=== PATIENT | female | born 1970 | race Caucasian/White ===

== ENCOUNTER 2017-03-09 00:09 | Observation (INO) | payer OTHER ==
[2017-03-09] VITALS (10 sets, daily range): BP systolic 109–126; BP diastolic 68–83
[~2017-03-09] VITALS: Ht 162.6 cm; Wt 82.1 kg
[~2017-03-09 00:09] MED LIST: IBUP800T37 PO
--- NOTE | 2017-03-09 04:15 | BRAGG H&P ---
DATE OF ADMISSION: March 09, 2017 CHIEF COMPLAINT Abnormal bleeding. HISTORY OF PRESENT ILLNESS The patient is a 46-year-old 4, para 3 with several-month history of menorrhagia. She reported heavy bleeding vaginally with moderate amount, however, being severe at times. She has also experienced a great deal of pain with her periods. She had endometrial biopsy that showed no hyperplasia, malignancy, polyps or chronic endometritis. After discussion of risks and alteratives, patient desired to proceed with laparoscopic-assisted vaginal hysterectomy, bilateral salpingectomy, modified Mckinney's culdoplasty, diagnostic cystoscopy with a possible anterior colporrhaphy. CURRENT MEDICATIONS Ibuprofen. ALLERGIES No known allergies. REVIEW OF SYSTEMS GENITOURINARY: As per HPI. General, skin, eyes, ears, nose, mouth, neck, respiratory, cardiovascular, gastrointestinal, neurologic, psychiatric all reviewed and noncontributory. PAST MEDICAL HISTORY Two vaginal deliveries and one C section. PAST SURGICAL HISTORY In 1999, she had C section with bilateral tubal ligation, 1979 tonsillectomy, 2004 a cholecystectomy. FAMILY HISTORY Mother with hypertension and diabetes. SOCIAL HISTORY She uses alcohol 2-3 times a week. 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 PHYSICAL EXAMINATION VITAL SIGNS: Blood pressure 124/78, temp 99, weight 186. CONSTITUTIONAL: Well-nourished, well-developed female in no distress. SKIN: Without rash or lesions. NECK: Supple without masses. HEART: Regular rate and rhythm. LUNGS: Clear to auscultation bilaterally. ABDOMEN: Soft, nontender, nondistended. Bowel sounds positive. EXTREMITIES: Nontender, no edema. PSYCHIATRIC: Alert and oriented x 3. Normal mood and affect. PELVIC: Normal external female genitalia. Well estrogenized vaginal lining. No abnormal discharge. No lesions. Cervix normal in appearance. No bladder tenderness. No adnexal masses or tenderness. Uterus was 7 x 6 cm and no adnexal masses or tenderness. She had grade 2 cystocele. ASSESSMENT AND PLAN Menorrhagia with uterine polyp found on saline infusion sonogram. Patient desired to proceed with laparoscopic-assisted vaginal hysterectomy, bilateral salpingectomy, modified Mckinney's culdoplasty, diagnostic cystoscopy and possible anterior colporrhaphy. [facility]
[2017-03-09] MEDS ORDERED: MIDAZOLAM 2 MG/2 ML VIAL ONE (08:50)
[2017-03-09] MEDS ORDERED: LIDOCAINE MPF 1% 5 ML VIAL ONE (08:51)
[2017-03-09] MEDS ORDERED: MORPHINE PF 5 MG/10 ML AMP ONE (08:51)
[2017-03-09] MEDS ORDERED: DEXAMETHASONE SOD PHOS 10MG/ML ONE (08:51)
[2017-03-09] MEDS ORDERED: ONDANSETRON 4 MG/2 ML VIAL ONE ×2 (08:51→11:13)
[2017-03-09] MEDS ORDERED: PROPOFOL EMUL(*) 10MG/ML 20 ML 20 ML ONE (08:51)
[2017-03-09] MEDS ORDERED: ROCURONIUM BROM 10 MG/ML 10 ML ONE (08:51)
[2017-03-09] MEDS ORDERED: fentaNYL CITR 100 MCG/2 ML AMP ONE ×2 (08:51→13:08)
[2017-03-09 09:40] LABS: PLATELET COUNT, AUTOMATED 378 K/uL (150-450)
[2017-03-09] MEDS ORDERED: ROPIVACAINE 0.2% 20 ML VIAL ONE (10:56)
[2017-03-09] MEDS ORDERED: VASOPRESSIN 20 UNIT/ML VIAL ONE (10:56)
[2017-03-09] MEDS ORDERED: NS(*) 0.9% 100 ML BAG 0 ML ONE (10:58)
--- NOTE | 2017-03-09 11:33 | Post Operative Note ---
Operative Note - TELEVISION ANALYZER Operative Day Date: Mar 09, 2017 Time: 11:40 Physicians Surgeon: JUAN RAMON Outsole Beveler: PELON Anesthesia: WATTS Diagnosis Pre-Op Diagnosis: MENORRHAGIA DYSMENORRHEA Post-Op Diagnosis: SAME RIGHT OVARIAN CYST Procedure Findings: UTERUS 7X6 CM NORMAL LEFT OVARY RIGHT OVARY WITH HEMORRHAGIC CYST BILATERAL URETERAL JETS AT END OF PROCEDURE [id number] Procedure(s): LAVH BI SALPINGECTOMY [facility] DX CYSTO RIGHT OVARIAN CYSTECTOMY Complications: 0 Fluids Fluids: 1300 CC NR IV Estimated Blood Loss: 300 CC Dictated Date OP Note Dictated: Mar 09, 2017 Time OP Note Dictated: 13:54 Copies to: ERICA DELATORRE MD, JOHN MD Mar 09, 2017 11:33
[2017-03-09] MEDS ORDERED: IBUP800T37 PO (11:34)
[2017-03-09] MEDS ORDERED: OXYC-373 PO (11:34)
[2017-03-09] MEDS ORDERED: LIDOCAINE/SOD BICARB 8.4% SYR ID ONE (12:30)
[2017-03-09] MEDS ORDERED: NORMOSOL R SOLN(*) 1000 ML BAG 1,000 ML IV PRN (12:30)
[2017-03-09] MEDS ORDERED: PHENAZOPYRIDINE 200 MG TAB PO ONE (12:30)
[2017-03-09] MEDS ORDERED: cefOXitin/DEX(*) 2GM/50ML PREM 50 ML IVPB ONE (12:30)
[2017-03-09] MEDS ORDERED: HYDROmorphone HCL 2 MG TAB PO ONE (12:30)
[2017-03-09] MEDS ORDERED: FAMOTIDINE 20 MG TAB PO ONE (12:30)
[2017-03-09] MEDS ORDERED: MIDAZOLAM 2 MG/2 ML VIAL IVP PRN (12:30)
[2017-03-09] MEDS ORDERED: CELECOXIB 200 MG CAP PO ONE (12:30)
[2017-03-09] MEDS ORDERED: SUGAMMADEX SOD 200 MG/2 ML SDV ONE (13:36)
[2017-03-09] MEDS ORDERED: DLR(*) 1000 ML BAG 1,000 ML IV PRN (13:43)
[2017-03-09] MEDS ORDERED: FAMOTIDINE(*) 20MG/50ML PREMIX 50 ML IVPB PRN (13:43)
[2017-03-09] MEDS ORDERED: PROMETHAZINE 25 MG/ML 1 ML AMP IVP PRN (13:45)
[2017-03-09] MEDS ORDERED: METOCLOPRAMIDE 10 MG/2 ML SDV IV PRN (13:45)
[2017-03-09] MEDS ORDERED: ONDANSETRON 4 MG/2 ML VIAL IV PRN (13:45)
[2017-03-09] MEDS: ACETAMINOPHEN(*)1000 MG/100 ML 100 ML IVPB SCH ×2 (14:12→20:11)
[2017-03-09] MEDS: SIMETHICONE 80 MG CHEW CHEW SCH ×2 (16:44→21:10)
[2017-03-09] MEDS: HYDROmorphone HCL 2 MG TAB PO PRN (16:51)
[2017-03-09] MEDS: CELECOXIB 200 MG CAP PO SCH (20:11)
[2017-03-09] MEDS: DOCUSATE CALCIUM 240 MG CAP PO SCH (21:10)
[2017-03-09] MEDS: FAMOTIDINE 20 MG TAB PO SCH (21:10)
--- NOTE | 2017-03-09 21:24 | OB/GYN Progress Note ---
OB Subjective Progress Notes Subjective Pain controlled, Tolerating diet and activity. GI: POS Flatus, NEG Nausea, NEG Vomiting Pain: Mild OB Objective Physical Exam Vital Signs Date Time Temp Pulse Resp B/P (MAP) Pulse Ox O2 Delivery O2 Flow Rate FiO2 03/09/17 18:10 100 Nasal Cannula 0.5 03/09/17 18:10 98.4 64 18 121/75 (90) Intake and Output 03/10/17 07:00 Intake Total 1530 ml Output Total 700 ml Balance 830 ml Intake Oral 230 ml IV Total 1300 ml Output Urine Total 400 ml Estimated Blood Loss 300 ml Cardiovascular: Regular Rate and Rhythm Respiratory: Clear to Auscultation Abdomen: Soft, Non-Tender, Non-Distended, Bowel Sounds Present Extremities: No Edema Result Diagram: 03/09/1792503/09/17925 Assessment and Plan Post Op Day: 0 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 Voiding trial tomorrow. ERICA DELATORRE MD Mar 09, 2017 21:24
[2017-03-10] MEDS: HYDROmorphone HCL 2 MG TAB PO PRN (00:06)
[2017-03-10] MEDS: ACETAMINOPHEN(*)1000 MG/100 ML 100 ML IVPB SCH ×2 (01:48→08:00)
[2017-03-10 01:50] VITALS: BP 107/61
[2017-03-10 06:49] LABS: PLATELET COUNT, AUTOMATED 290 K/uL (150-450)
--- NOTE | 2017-03-10 07:32 | OB/GYN Progress Note ---
OB Subjective Progress Notes Subjective Pain controlled, Tolerating diet and activity. 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 Voiding trial today. ERICA DELATORRE MD Mar 10, 2017 07:32
[2017-03-10 07:45] VITALS: BP 114/70
[2017-03-10 08:02] VITALS: Ht 162.6 cm; Wt 82.1 kg
[2017-03-10] MEDS: DOCUSATE CALCIUM 240 MG CAP PO SCH (08:27)
[2017-03-10] MEDS: FAMOTIDINE 20 MG TAB PO SCH (08:27)
[2017-03-10] MEDS: CELECOXIB 200 MG CAP PO SCH (08:27)
[2017-03-10] MEDS: SIMETHICONE 80 MG CHEW CHEW SCH (08:28)
[2017-03-10 11:50] VITALS: BP 118/68
[2017-03-11] MEDS ORDERED: INFLUENZA VIRUS VAC 0.5 ML SYR IM ONLY ONE (09:00)
--- NOTE | 2017-03-12 04:53 | BRAGG LAVH ---
EVENT DATE: March 09, 2017 SURGEON: Quentin Prado MD ANESTHESIOLOGIST: Nitish Zacarias MD ANESTHESIA: chief recordist: Warren Cagle DO PREOPERATIVE DIAGNOSES 1. Menorrhagia. 2. Dysmenorrhea. POSTOPERATIVE DIAGNOSES 1. Menorrhagia. 2. Dysmenorrhea. 3. Right ovarian cyst. PROCEDURE PERFORMED Laparoscopic-assisted vaginal hysterectomy, bilateral salpingectomy, modified Mckinney's culdoplasty, diagnostic cystoscopy with a right ovarian cystectomy at end of procedure. COMPLICATIONS None. FLUIDS 1300 mL of Normosol IV. ESTIMATED BLOOD LOSS 300 mL. INDICATIONS The patient is 46-year-old multiparous female with menorrhagia and dysmenorrhea that tried medical management for her abnormal bleeding, which was unsuccessful. After the discussion of risks and alternatives, the patient desired to proceed with hysterectomy. FINDING Uterus 7 x 6 cm. She had a normal left ovary. She had a right ovary with a hemorrhagic-appearing cyst. Bilateral ureteral jets were seen at the end of the procedure. DESCRIPTION OF PROCEDURE After informed consent was obtained, the patient was taken to the operating room with IV running, placed in a supine position, where general anesthesia was obtained without difficulty. She was then placed in the [facility], examined under anesthesia with the above findings. She was then prepped and draped in the usual fashion, and a Reddy catheter was placed. Side-out speculum was placed into the vagina. Cervix was grasped with a single-toothed tenaculum and the cervix sounded to 9 cm. The #8 VERONICA uterine manipulator was advanced into the uterine cavity. Once the VERONICA had been placed, all the remainder of the instruments were removed from the vagina. The legs were lowered. Attention was then turned to the abdomen, where 0.2 Naropin was infiltrated into the umbilicus. Skin incision was made with the scalpel. Veress needle was advanced into the abdominal cavity. Normal CO2 filling pressures were noted. After adequate insufflation, a 5 mm bladeless trocar was advanced under laparoscopic guidance. Intraabdominal placement was confirmed by laparoscopy. No injuries were noted at the time of entry. Right and left lateral ports were placed after 0.2 Naropin, skin incision, scalpel and advancing the 5 mm bladeless trocars under direct visualization. Patient was placed in Trendelenburg positioning. Bowel was allowed to escape from the pelvis. She was noted to have hemorrhagic-appearing cyst on the right ovary, normal-appearing left ovary. No other abnormalities were noted. The left tube was identified, grasped and transected away from the left ovary with the gyrus cutting forceps down to the cornual region of the uterus. The left utero- ovarian ligament was then grasped with the gyrus cutting forceps, coapted and transected, round ligament coapted and transected with the gyrus cutting forceps. Attention was then turned to the patient's right, where the right ovary appeared to have a hemorrhagic-appearing cyst or a hemorrhagic corpus luteum on the right ovary. The right tube was from the right ovary with the gyrus cutting forceps, and the mesosalpinx was transected down to the corneal region of the uterus. Utero-ovarian ligament was coapted and transected with the gyrus cutting forceps, and then the round ligament coapted and transected. The anterior and posterior leaf of the broad ligament was transected down to the lower uterine segment, creating a bladder flap anteriorly. The posterior leaf of the broad ligament was then transected down towards the right utero-sacral ligament. Uterine arteries were identified in the entrance into the lower uterine segment. They were coapted with the gyrus cutting forceps. Attention was then turned towards the patient's left. The remainder of the bladder flap was created with the anterior leaf of the broad ligament being transected, and then the posterior leaf of the broad ligament transected down towards the left utero-sacral ligament. The uterine arteries were coapted at their insertion to the lower uterine segment. Hemostasis was noted. Gas was allowed to escape from the abdomen along with the instruments were removed. Attention was then turned to the vaginal portion of the case, where the legs were elevated. Short weighted speculum was placed into the vagina. Cervix was grasped with Leda clamps, cervix circumscribed with the Bovie, posterior cul-de-sac entered sharply with Hanna scissors. The long weighted speculum was placed into the posterior cul-de-sac. The uterosacral ligaments were identified bilaterally and gasped with Josefina clamps, transected and suture ligated with #0-Vicryl. The vaginal lining was dissected off the endocervical fascia with Metzenbaum scissors. The cardinal ligaments were identified bilaterally, clamped with Josefina clamps, transected and suture ligated with #0-Vicryl. The vaginal lining was then further dissected off the endocervical fascia with Metzenbaum scissors. Uterine arteries were then clamped with Josefina clamps, transected and suture ligated with #0-Vicryl. The anterior cul-de-sac was then entered sharply with Metzenbaum scissors. Right angle retractor was placed into the anterior cul-de-sac and anterior compartment was confirmed. The remainder of the uterine pedicles were then clamped with Josefina clamps bilaterally, transected and suture ligated with #0- Vicryl. Uterus was removed from the pelvis. Irrigation was performed. No bleeding was noted from either pedicle. The peritoneum was grasped at the 12 o' clock position and closed in a counter clockwise manner in a purse-string fashion down to the right uterosacral ligament. The right uterosacral ligament was plicated to the ipsilateral portion of the vaginal lining on the right and then the left. Short weighted speculum was placed. The posterior cul-de-sac was then purse-stringed with the Mckinney's sutures, and then exiting out of the posterior wall of the vagina bilaterally. This was done bilaterally. The peritoneum was then further closed in a pursestring fashion, closing the peritoneum. Irrigation was performed. There was some oozing from the posterior cuff, and no bleeding from the pedicles. The vaginal lining was then closed with a running locked fashion of 2-0 Vicryl Plus down to the level of the uterosacral ligaments. The uterosacral ligaments were plicated in the midline, and the posterior cuff was then closed in a running locked fashion. Irrigation was performed. No further bleeding was noted. The Mckinney's sutures were then tied, elevating the posterior cuff nicely into the vaginal vault. Cystoscopy was performed. Normal bladder was noted, no injuries. The bilateral ureteral jets could be seen with Pyridium-stained urine. Bladder was drained. Reddy catheter was replaced. Legs were lowered. Attention was then turned to the abdomen. The abdomen was re-insufflated. Irrigation was performed. There was some oozing from the right uterine pedicle. This was made hemostatic with the gyrus cutting forceps. The inspection of the right ovary revealed what appeared to be a cystic-type simple cyst on the right ovary , which was drained with the gyrus cutting forceps. The adjacent cyst was then incised, and what appeared to be clot was removed from the suspected hemorrhagic corpus luteum and sent to pathology. The gyrus was used to create hemostasis in the ovarian bed, and irrigation was performed. No further bleeding was noted from anywhere in the pelvis. The gas was allowed to escape. All instruments were removed from the abdomen. The skin was closed with 4-0 Maxon and Dermabond. The patient was taken out of the [facility], awakened from anesthesia, and taken to the recovery room in stable condition. CELSA
== END 2017-03-10 12:11 | disposition home or self-care (01) ==
LOC: OR 00:09 → PED 15:10
PROVIDERS: ADMIT Obstetrics & Gynecology; ATTEND Obstetrics & Gynecology
DX: N92.0 Excessive and frequent menstruation with regular cycle (principal); N94.6 Dysmenorrhea, unspecified
CPT/HCPCS: 36415; 58552; 84703; 85025; 88305; 88307; G0378; J0131; J0694; J1100; J2001; J2250; J2405; J2704; J2795; J3010; 82310; 82374; 82435; 82565; 82947; 84132; 84295; 84520; J2270; J3490; J7050

== ENCOUNTER → 2017-04-07 | Outpatient (CLI) | payer OTHER ==
[2017-03-10 08:02] VITALS: BMI 31.1
[~2017-04-07] MED LIST changes: +IOPAMIDOL 76% 75 ML INFUS BTL 75 ML ONE; +NS 0.9% 20 ML SDV 60 ML ONE; +OXYC-373 PO
--- NOTE | 2017-04-07 13:54 | RADIOLOGY IMAGING REPORT ---
FACILITY: [facility] PATIENT NAME: Katharine Godfrey : 1970 MR: [id number] V: [id number] EXAM DATE: ORDERING PHYSICIAN: ERICA DELATORRE TECHNOLOGIST: Location: [facility] [place] Patient: Katharine Godfrey : 1970 Visit/Account:[id number] Date of Sevice: 04/07/2017 ABDOMEN/PELVIS WITH CONTRAST HISTORY: Right lower quadrant pain post partial hysterectomy one month previously. Biopsies on righ t ovary, bladder spasms TECHNIQUE: Following administration of IV contrast contiguous axial images acquired through the abdom en/pelvis. Coronal and sagittal reformatting also performed. Dose Lowering Technique One of the following dose optimization techniques was utilized in the performance of this exam: Autom ated exposure control; adjustment of the mA and/or kV according to the patient's size; or use of an i terative reconstruction technique. Specific details can be referenced in the facility's radiology C T exam operational policy. CONTRAST: 75 mL Isovue-370 COMPARISON: None. FINDINGS: Visualized lung bases: Small amount linear stranding in the inferior lingula may be secondary to mil d atelectasis Hepatobiliary: Postsurgical changes from cholecystectomy Spleen: Negative. Adrenals: Negative. Pancreas: Negative. Kidneys ureters or bladder: There is no evidence of hydronephrosis hydroureter or urolithiasis. . T he urinary bladder is moderately distended Genitalia: There are postsurgical changes from hysterectomy. There are multiple cysts in the left o vary the largest measuring 3.9 cm in diameter. No abnormal fluid collections or abscesses identified within the abdomen or pelvis. GI: The appendix is visualized and does not appear inflamed. There is no evidence of bowel distenti on or bowel wall thickening. Vessels/spaces/nodes: Negative. Bones/soft tissues: No aggressive appearing bone lesions are seen Additional findings: None pertinent. IMPRESSION: There are postsurgical changes from hysterectomy with no abnormal fluid collections or abscesses iden tified within the abdomen or pelvis. Multiple left ovarian cysts largest measuring 3.9 cm in diameter Small amount linear stranding in the inferior lingula may be secondary to mild atelectasis. Postsurgical changes from a cholecystectomy Report Dictated By: Nisa Allison MD at 04/07/2017 1:43 PM Report E-Signed By: Nisa Allison MD at 04/07/2017 1:51 PM WSN:[email or web address]
== END ==
LOC: CT 11:51
PROVIDERS: ATTEND Obstetrics & Gynecology
DX: N32.89 Other specified disorders of bladder (principal); N83.202 Unspecified ovarian cyst, left side; Z90.710 Acquired absence of both cervix and uterus; R91.8 Other nonspecific abnormal finding of lung field
CPT/HCPCS: 74177; J7050; Q9967